=== PATIENT | female | born 1975 | race Caucasian/White ===

== ENCOUNTER 2020-02-10 19:44 | Emergency (ER) | payer MEDICARE, MEDICAID, SELFPAY ==
[2020-02-10 19:45] VITALS: BP 118/85; PULSE 101; RESP 16; TEMP 36.4; O2SAT 98; BMI 22.4
--- NOTE | 2020-02-10 20:48 | RAD_ITS ---
STUDY: X-RAY - LEFT KNEE REASON FOR EXAM: Female, 44 years old. Swelling in left knee. TECHNIQUE: 3 view(s) of the knee. COMPARISON: None. FINDINGS: The knee is aligned. There is no acute fracture. Joint spaces mildly decreased in the lateral compartment. There is heterogeneous periarticular demineralization. Trabeculation is coarsened. Patella is thickened in AP dimension. There is mild deformity of the fibular head, possibly posttraumatic. There is mild synovial thickening. RAD/Knee 3 Views IMPRESSION: 1. Abnormal knee, possibly subacute or chronic ongoing process, such as inflammation, consider PVNS, versus inflammatory arthropathy. 2. No fracture. Orthopedic referral is advised. Electronically Signed: Ruth Black, at 21:18 EDT Tel , Service support ,
--- NOTE | 2020-02-10 20:50 | US_ITS ---
STUDY: VENOUS DOPPLER ULTRASOUND - LEFT LOWER EXTREMITY REASON FOR EXAM: Female, 44 years old. LT LEG SWELLING TECHNIQUE: Ultrasound evaluation of the deep vein system to include batista-scale imaging and compression was performed. Batista-scale imaging and Doppler sonographic evaluation, including duplex spectral analysis and qualitative color flow sonography, was performed. COMPARISON: None. FINDINGS: Common Femoral Vein: Normal compression, spontaneity and augmentation. Normal color Doppler. Common Femoral Vein/Greater Saphenous Junction: Normal compression, spontaneity and augmentation. Normal color Doppler. Deep Femoral Vein: Not well seen Femoral Proximal: Normal compression, spontaneity and augmentation. Normal color Doppler. Femoral Middle: Normal compression, spontaneity and augmentation. Normal color Doppler. Femoral Distal: Normal compression, spontaneity and augmentation. Normal color Doppler. Popliteal Vein: Normal compression, spontaneity and augmentation. Normal color Doppler. Posterior Tibial Vein: Normal compression, spontaneity and augmentation. Normal color Doppler. Peroneal Vein: Normal compression, spontaneity and augmentation. Normal color Doppler. There is a small popliteal cyst. US/Venous Duplex Imag/Limited/Uni IMPRESSION: Normal venous Doppler ultrasound of the lower extremity. Electronically Signed: Ruth Black, at 21:39 EDT Tel , Service support ,
[2020-02-10 21:28] VITALS: BP 120/63; PULSE 94; RESP 14; O2SAT 98
[2020-02-10 23:59] LABS: Pathologist Comment May follow
--- NOTE | 2020-02-11 00:12 | ED.DCSUM_ITS ---
History of Present Illness Chief Complaint: Edema Informant: Family Narrative: 44-year-old female presenting with family. They tell me that they noticed that the left leg was swollen so they went to urgent care and was directed to the emergency department out of concern for possible blood clot to the lower leg. The patient was recently at [facility] for several weeks. She underwent neurosurgery. While there she developed a clot in the right leg and had a Charlotte filter placed. She was not discharged home on any blood thinners. The patient reportedly has not had any trauma. Family notes that the left knee is now swollen. No reported fevers. Past Medical History - Allergies and Home Meds Allergies/Adverse Reactions: Allergies No Known Allergies Allergy (Verified 02/10/20 19:48) Prior records reviewed: Yes Surgical History: noncontributory, - - Multiple cranial surgeries Lives: With Family Smoking Status: Never smoker Alcohol: None Drugs: None Review of Systems General: Denies: Chills, Fever, Sweats Eyes: Denies: Visual changes - bilaterally, Diplopia ENT: Denies: Rhinorrhea, Sore throat Cardiovascular: Denies: Chest pain, Palpitations Respiratory: Denies: Dyspnea, Cough, Dyspnea on exertion Gastrointestinal: Denies: Abdominal pain, Nausea, Vomiting, Diarrhea, Melena, Hematochezia Genitourinary: Denies: Dysuria, Hematuria, Frequency Musculoskeletal: Reports: Swelling, Extremity Pain. Denies: Back pain Skin: Denies: Rash, Wounds Neurological: Denies: Headache, Weakness, Numbness Physical Exam Vital Signs/Narrative: Vital Signs Pulse Resp BP Pulse Ox 02/10/20 21:28 94 14 120/63 98 Inital Vital Signs reviewed: Yes General: Well nourished, Well developed, No Acute Distress Head: Normocephalic, - - Status post surgical changes Eyes: Perrl, EOMI ENT: Moist mucous membranes, No rhinorrhea Neck: Supple, Nontender Cardiovascular: Regular rate, Regular rhythm, No murmurs Respiratory: No distress, CTA bilaterally, Chest nontender Abdomen: Soft, Nontender, Nondistended, Normal bowel sounds Back: Nontender, Normal Inspection Extremities: - - The patient's left leg is mildly swollen below the knee. Compartments are soft. Does not appear painful to squeeze the calf as was reported. The left knee shows an obvious effusion. There is no erythema or increased warmth. Ligaments appear stable Skin: Normal color, No rash Neurological: Alert, Oriented x3, Cranial nerves II-XII grossly intact, Normal Strength, Normal Sensation Psychological: Normal affect, Normal Mood Diagnostic/Tx/Re-eval Clinical Impression(s) from Imaging Studies Knee X-Ray 02/10/20 20:48 IMPRESSION: 1. Abnormal knee, possibly subacute or chronic ongoing process, such as inflammation, consider PVNS, versus inflammatory arthropathy. 2. No fracture. Orthopedic referral is advised. Electronically Signed: Quyenrima Sofia, at 21:18 EDT Tel , Service support , Venous Duplex 02/10/20 20:50 IMPRESSION: Normal venous Doppler ultrasound of the lower extremity. Electronically Signed: Quyenrima Sofia, at 21:39 EDT Tel , Service support , - Medical Decision Making Patient underwent sterile arthrocentesis. After washing the skin with Betadine and a sterile field a small wheal was raised subcutaneously with 1% lidocaine. An 18-gauge needle was introduced and 25 cc of bloody fluid was removed from the joint. This was sent for evaluation. The results are currently pending and patient will be assigned to the night physician for check of arthrocentesis labs. Plan will be that if there is no obvious infection the patient will have an Barber wrap applied and will follow up with orthopedics. Family has requested to follow-up with [facility] in [place]. ED Disposition - Plan for ED Patient: Diagnosis: Effusion, left knee Instructions: ED Effusion Knee Referrals: Michelle Connell MD [Primary Care Provider] - Bennie Aguilar MD [STAFF PHYSICIAN] - As soon as possible
[2020-02-11 00:44] LABS: RBC /Synovial Fluid 2.998 10^6/uL (0); Synovial Fld Mononuclear WBC % 26.8 %; Synovial Fld Polynuclear WBC % 73.2 %
[2020-02-11 00:59] LABS: AUTO B FLUID DILUENT BKGD CT WBC <0.1 RBC <0.01 (W<.1,R<.01); Appearance /Synovial Fluid Turbid (CLEAR); Color / Synovial Fluid Red (Pale Yellow); Source / Synovial Fluid LEFT KNEE; Source- Body Fluid SYNOVIAL; Viscosity / Synovial Fluid Viscous (HIGH)
[2020-02-11 01:09] LABS: Body Fluid QC Type(s) BF1Q,BF2Q; Lymph 15 %; Monocyte /Synovial Fluid 11 %; Neutrophil 74 % (0-25); Synovial Fld Mononuclear WBC # 2.546 10^3/ul
[2020-02-11 01:17] VITALS: BP 112/70; PULSE 86; RESP 16; O2SAT 97
[2020-02-13 13:49] LABS: Pathologist Review Reviewed
== END 2020-02-11 01:18 | disposition home or self-care (01) ==
LOC: ED 21:23
PROVIDERS: Emergency Provider Emergency Medicine; PCP Student in an Organized Health Care Education/Training Program
DX: M25.462 Effusion, left knee (principal)
CPT/HCPCS: 73562; 87070; 87075; 87205; 89050; 89051; 89060; 93971; 99281

== ENCOUNTER 2022-08-25 16:19 | Emergency (ER) | payer MEDICARE, MEDICAID, SELFPAY ==
[2022-08-25 16:20] VITALS: BP 158/103; PULSE 130; RESP 14; TEMP 37.4; O2SAT 95
--- NOTE | 2022-08-25 17:40 | RAD_ITS ---
INDICATION: Fever, vomiting EXAMINATION/TECHNIQUE: X-RAY - XR Chest 1 View COMPARISON: None. FINDINGS: LINES/DEVICES: There is a right-sided shunt catheter.. LUNGS: No consolidation, edema or effusion. No pneumothorax. MEDIASTINUM AND CARDIOVASCULAR STRUCTURES: Cardiac silhouette not enlarged. Central airways and mediastinal contour are unremarkable. BONES AND SOFT TISSUES: Unremarkable. An IVC filter is partially visualized. There is a probable gastrostomy tube. RAD/Chest 1 View (Portable) IMPRESSION: No radiographic evidence of acute cardiopulmonary disease. Electronically Signed: Jonel Millard DO at 17:57 EDT ,
--- NOTE | 2022-08-25 17:41 | EX.ED.DYSGE1 ---
HPI History of Present Illness Chief Complaint: Other, Pain/Inj Detail of Chief Complaint: Fever, problems with gastrostomy tube Informant: family Onset/Context/Timing Onset: Days (Nausea and vomiting past couple of days) and - (Uncertain) Context: - (Presumed acute) Timing: Intermittent Current Severity: Unable to determine Maximum Severity: Unable to determine Worsened by: Unable to determine Relieved by: Unable to determine Associated Symptoms Associated Symptoms: Unknown Narrative Narrative: Patient is a 47-year-old female status post craniotomy for brain cancer 5 years ago who had subsequent complications. She was seen at outside facility and brought here because mother was not satisfied with treatment or explanation or lack thereof. History is limited since patient is nonverbal. According to mother she does have frequent urinary tract infections. According to mother she vomited several times yesterday. Prior similar symptoms: Yes Recent Illness/Hospitalization: No PFSH PFS Medical History (Updated 08/25/22 @ 19:[address] Bk Salgado MD) Brain cancer Home Medications No Known/Unobtainable [Unobtainable] 10/22/16 [History Last Taken Unknown] Allergy/AdvReac Type Severity Reaction Status Date / Time No Known Allergies Allergy Verified 08/25/22 16:24 Social History Smoking Status: Never smoker ROS ROS ED Review of Systems ROS Unobtainable: due to mental status EXAM Physical Exam Const Vital Signs: 08/25/22 16:20 Temperature 99.3 F H Temperature Source Temporal Pulse Rate 130 H Respiratory Rate 14 Blood Pressure 158/103 H Blood Pressure Mean 121 Pulse Ox 95 Oxygen Delivery Method Room Air Positive well developed General Appearance ED: well developed, NAD and pallor HEENT Reports TM's clear and dry mucous membranes HEENT Narrative: Head is atraumatic. Deformity due to prior craniotomies. Tympanic Membrane ED: Yes TM's clear Mouth ED: Yes dry mucous membranes Mouth: dry mucous membranes Eyes PERRL General Eye ED: Negative for pale conjunctiva or scleral icterus Neck no lymphadenopathy, No supple and no JVD Chest Wall inspection of chest normal and palpation of chest normal Resp normal respiratory effort and clear to auscultation bilaterally Cardio regular rhythm, S1 normal heart sound, S2 normal heart sound and no murmurs GI normal to inspection, nondistended, normoactive bowel sounds, non-tender, non-distended and no masses; Negative for hepatosplenomegaly GI Narrative: Gastrostomy tube noted. Patient presently has a [address] a 20 Ecuadorean. Palpation: soft Extremity Extremity Narrative: Dependent edema Neuro No oriented x3 and No CN's II-XII intact bilaterally Sensorium / Orientation: Negative for alert Psych Psych Narrative: GCS is 6 Skin no rashes or lesions noted and no wounds General Skin Exam: pallor; Negative for jaundice MDM MDM MDM Narrative Medical decision making narrative: With reported fever and tachycardia history of vomiting need to evaluate for possible viral infection, aspiration pneumonitis, mother reports increased urination need to rule out UTI since she has history of recurrent urinary tract infections. CBC was obtained assess white count H&H. Basic metabolic panel to assess renal function and electrolytes. Chest x-ray to evaluate for pneumonia, aspiration pneumonitis. Lab Data Attestation: I reviewed the patient's lab results. Lab results narrative: Count is elevated 12.5 thousand. There is a shift with no bandemia. Comprehensive metabolic panel was elevated glucose with normal CO2 and anion gap. test was obtained per Protocol which was negative. Labs: Laboratory Results - last 24 hr 08/25/22 08/25/22 08/25/22 17:53 17:53 17:53 WBC 12.5 H RBC 4.82 Hgb 15.2 H Hct 45.6 MCV 94.6 MCH 31.5 MCHC 33.3 RDW Std Deviation 47.7 H RDW Coeff of Jose Luis 13.7 Plt Count 265 MPV 10.2 Immature Gran % (Auto) 0.300 Neut % (Auto) 89.6 H Lymph % (Auto) 4.2 L Ell[place] % (Auto) 5.7 Eos % (Auto) 0.0 Baso % (Auto) 0.2 Absolute Neuts (auto) 11.2 H Absolute Lymphs (auto) 0.53 L Nucleated RBC % 0 Differential Comment SCANNED Sodium 140 Potassium 3.3 L Chloride 104 Carbon Dioxide 28.0 Anion Gap 8 BUN 13 Creatinine 0.60 Est GFR (MDRD) Af Amer 135 Est GFR (MDRD) Non-Af 112 BUN/Creatinine Ratio 21.5 H Glucose 139 H Calcium 8.8 Total Bilirubin 0.30 AST 24 ALT 75 H Alkaline Phosphatase 146 H Total Protein 7.6 Albumin 3.4 Globulin 4.2 Albumin/Globulin Ratio 0.8 L Serum , Qual NEGATIVE Urine Color Urine Clarity Urine pH Ur Specific [place] Urine Protein Urine Glucose (UA) Urine Ketones Urine Occult Blood Urine Nitrite Urine Bilirubin Urine Urobilinogen Ur Leukocyte Esterase Urine RBC Urine WBC Ur Squamous Epith Cells Amorphous Sediment Urine Bacteria Urine Mucus 08/25/22 18:13 WBC RBC Hgb Hct MCV MCH MCHC RDW Std Deviation RDW Coeff of Jose Luis Plt Count MPV Immature Gran % (Auto) Neut % (Auto) Lymph % (Auto) [place] % (Auto) Eos % (Auto) Baso % (Auto) Absolute Neuts (auto) Absolute Lymphs (auto) Nucleated RBC % Differential Comment Sodium Potassium Chloride Carbon Dioxide Anion Gap BUN Creatinine Est GFR (MDRD) Af Amer Est GFR (MDRD) Non-Af BUN/Creatinine Ratio Glucose Calcium Total Bilirubin AST ALT Alkaline Phosphatase Total Protein Albumin Globulin Albumin/Globulin Ratio Serum , Qual Urine Color Yellow Urine Clarity Sl. Cloudy Urine pH 7.0 Ur Specific [place] 1.010 Urine Protein 30 H Urine Glucose (UA) Normal Urine Ketones Negative Urine Occult Blood 25 H Urine Nitrite Negative Urine Bilirubin Negative Urine Urobilinogen Normal Ur Leukocyte Esterase 500 H Urine RBC 0-5 SEEN Urine WBC 25-50 SEEN Ur Squamous Epith Cells 10-25 SEEN Amorphous Sediment 1+ PHOS Urine Bacteria 0 SEEN Urine Mucus 0 SEEN UA reveals contaminated specimen. Radiography Diagnostic Testing: Clinical Impression(s) from Imaging Studies Chest X-Ray 08/25/22 17:40 IMPRESSION: No radiographic evidence of acute cardiopulmonary disease. Electronically Signed: Jonel Millard DO at 17:57 EDT Reading Location ID and State: [address] [place] [address] Tel [phone], Service support , Treatment and Re-Evaluation :: With a normal chest x-ray and normal urinalysis/contaminated urinalysis with no evidence of bacteria no antibiotics were administered. Patient be discharged home. The leukocytosis is of unknown etiology. This may represent a viral illness. Procedures Other Procedures Procedure(s): 16 Ecuadorean Gerber was replaced with a 28 MICA tube. This was performed by mn without complications. Discharge Plan Triage Chief Complaint: Other, Pain/Inj ED Provider: DamianBk Dx/Rx/DC Orders Clinical Impression: Fever, Brain cancer, H/O craniotomy, Sinus tachycardia, History of gastrostomy tube placement Instructions: ED FUO Adult Prescriptions: No Action Unobtainable Primary Care Provider: Susanne Calvert Referrals: Susanne Calvert, FINANCIAL ASSISTANCE SPECIALIST-C [Primary Care Provider] - 3-5 Days if not improving Disposition Disposition: Home, Self Care
[2022-08-25 18:08] LABS: Absolute Lymphocyte Count 0.53 X10^3/uL (0.83-4.51); Absolute Neutrophil Count 11.2 X10^3/uL (2.0-7.7); Basophil# 0.03 X10^3/uL; Basophil% 0.2 % (0-1); Hematocrit 45.6 % (37-47); Hemoglobin 15.2 g/dL (12.0-15.0); Lymphocyte # 0.53 X10^3/ul (0.83-4.51); Lymphocyte % 4.2 % (19-41); Mean Corp Hgb Conc 33.3 g/dL (32-36); Mean Corpuscular Hgb 31.5 pg (27.0-32.0); Mean Corpuscular Volume 94.6 fL (81-99); Mean Platelet Vol. 10.2 fl (6.2-12.0); Monocyte# 0.71 X10^3/uL; Monocyte% 5.7 % (0-10); NRBC Flagged by Analyzer 0 % (0-5); Neutrophil # 11.18 X10^3/uL (2.7-7.7); Neutrophil % 89.6 % (47-70); POSITIVE DIFFERENTIAL YES; Platelet Count 265 K/mm3 (150-450); RBC Distribution Width CV 13.7 % (11.6-14.6); RBC Distribution Width SD 47.7 fl (35.1-43.9); Red Blood Count 4.82 M/mm3 (4.2-5.4); White Blood Count 12.5 K/mm3 (4.4-11.0)
[2022-08-25 18:17] LABS: Internal QC Validated? YES +Cl - CLEAR BKGD; Pregnancy, Serum, hCG Quali. NEGATIVE Negative
[2022-08-25 18:19] LABS: Bacteria 0 SEEN /hpf (None Seen); Mucous, Urine 0 SEEN /hpf (<or=2+)
[2022-08-25 18:19] LABS: Differential Indicated SCAN CRITERIA MET
[2022-08-25 18:21] LABS: ALB/GLOB Ratio 0.8 RATIO (0.9-2.4); AST(SGOT) 24 U/L (15-37); Alanine Aminotransfer ALT/SGPT 75 U/L (13-56); Albumin, Serum 3.4 g/dL (3.2-5.0); Alkaline Phosphatase 146 U/L (45-117); Anion Gap 8 (5-15); BUN 13 mg/dL (7-18); BUN/Creat Ratio 21.5 RATIO (10-20); Calcium,Total 8.8 mg/dL (8.5-10.1); Chloride 104 mmol/L (98-107); EST Glomerular Filtration Rate 112 mL/min (>60); Est Glom Filt Rate - Afr Amer 135 mL/min (>60); Globulin 4.2 g/dL (2.2-4.2); Glucose 139 mg/dL (74-106); Potassium 3.3 mmol/L (3.5-5.1); Protein, Total 7.6 g/dL (6.4-8.2); Sodium Level 140 mmol/L (136-145)
[2022-08-25 18:45] LABS: Color, Urine Yellow (Yellow); Glucose, Dipstick Normal (Normal); Ketone-Dipstick Negative (Negative); Leukocyte Esterase-Dipstick 500 /ul (Negative); Nitrite-Dipstick Negative (Negative); Occult Blood-Urine 25 /ul (Negative); Protein-Dipstick 30 mg/dl (Negative); Urine Bilirubin Dipstick Negative (Negative); Urine Clarity Sl. Cloudy (Clear); Urine Urobilinogen Normal (Normal)
[2022-08-25 18:46] LABS: Differential Comment SCANNED
[2022-08-25 19:00] LABS: Red Blood Cells-Urine 0-5 SEEN /hpf (0-5); Squamous Epithelial Cells - UA 10-25 SEEN /hpf (5-10); White Blood Cells 25-50 SEEN /hpf (0-5)
[2022-08-25 19:01] LABS: Amorphous Sediment 1+ PHOS
[2022-08-25 19:59] VITALS: PULSE 122; O2SAT 95
== END 2022-08-25 19:59 | disposition home or self-care (01) ==
PROVIDERS: Emergency Provider Emergency Medicine; PCP Nurse Practitioner Family; Visit Provider Emergency Medicine
DX: R50.9 Fever, unspecified (principal); C71.9 Malignant neoplasm of brain, unspecified; Z93.1 Gastrostomy status; R00.0 Tachycardia, unspecified
CPT/HCPCS: 71045; 80048; 80053; 81001; 84703; 85025; 99284; P9612; A4216